=== PATIENT | female | born 1990 | race Caucasian/White ===

== ENCOUNTER 2017-02-03 13:13 | Emergency (ER) | payer OTHER ==
[~2017-02-03] VITALS: Wt 75.0 kg
[~2017-02-03 13:13] MED LIST: ATEN-51 PO; CARB100T2 PO; HYDR-3498 PO
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
--- NOTE | 2017-02-03 15:27 | RADRPT ---
PROCEDURE: XR Chest. CLINICAL INDICATION: Chest pain/injury TECHNIQUE: Chest AP. COMPARISON: No comparison available. FINDINGS: The mediastinal structures are unremarkable. The heart is normal in size and configuration. The pu lmonary vascularity is normal. The lung bullock are unremarkable. No consolidation is identified. The pleural spaces are unremarkable. The axial skeleton is unremarkable. IMPRESSION: No active intrathoracic disease. RPTAT: HGDB .Iam Clayton MD, MD Date Time Electronically viewed and signed by .Iam Clayton MD, MD on 02/03/2017 15:27 .B/
--- NOTE | 2017-02-03 15:27 | RADRPT ---
PROCEDURE: XR right hand. CLINICAL INDICATION: Hand pain /injury TECHNIQUE: Three views are available for review. COMPARISON: No prior studies are available for comparison. FINDINGS: The osseous structures are normal in mineralization, architecture and alignment. No fracture or oss eous lesion is identified. The joints are unremarkable. No erosions are identified. The soft tissue s are unremarkable. IMPRESSION: Unremarkable examination. RPTAT: HGDB .Iam Clayton MD, MD Date Time Electronically viewed and signed by .Iam Clayton MD, on 02/03/2017 15:27 .B/
--- NOTE | 2017-02-03 15:28 | RADRPT ---
PROCEDURE: XR right rib series. CLINICAL INDICATION: Rib pain TECHNIQUE: 3 views of the rib cage are available for review COMPARISON: No comparison study available FINDINGS: The ribs are normal in mineralization and architecture. No fracture is identified. No osseous lesi on is identified. The visualized lung bullock are unremarkable. The pleural spaces are unremarkable . No effusion or pneumothorax is identified. IMPRESSION: Unremarkable examination RPTAT: HGDB .Iam Clayton MD, MD Date Time Electronically viewed and signed by .Iam Clayton MD, on 02/03/2017 15:28 .B/
--- NOTE | 2017-02-03 15:29 | RADRPT ---
PROCEDURE: CR left humerus CLINICAL INDICATION: Arm pain /injury TECHNIQUE: 2 views of humerus performed COMPARISON: No comparison available. FINDINGS: The osseous structures are normal in mineralization, architecture and alignment.No fracture or osseo us lesion is identified. The joints are unremarkable. The soft tissues are unremarkable. IMPRESSION: Unremarkable examination. RPTAT: HGDB .Iam Clayton MD, MD Date Time Electronically viewed and signed by .Iam Clayton MD, on 02/03/2017 15:28 .B/
[2017-02-03] MEDS ORDERED: NAPR-260 PO (15:38)
[2017-02-03] MEDS ORDERED: NEOM1PAC TP (15:38)
[2017-02-03] MEDS ORDERED: TRAM50TA2 PO (15:38)
== END 2017-02-03 22:56 | disposition home or self-care (01) ==
LOC: FTE 13:13
DX: R07.81 Pleurodynia (principal); I10 Essential (primary) hypertension; Y08.89XA Assault by other specified means, initial encounter
CPT/HCPCS: 71010; 71100; 73060; 73130; Z7502

== ENCOUNTER 2017-08-02 12:17 | Emergency (ER) | payer OTHER ==
[~2017-08-02] VITALS: Ht 165.1 cm; Wt 80.0 kg
[~2017-08-02 12:17] MED LIST changes: +NAPR-260 PO; +NEOM1PAC TP; +TRAM50TA2 PO
[2017-08-02 12:26] VITALS: Ht 165.1 cm; Wt 80.0 kg
[2017-08-02] MEDS ORDERED: ONDANSETRON (ODT) 4 MG TAB ODT STA (14:16)
[2017-08-02] MEDS ORDERED: HYDROCODONE/APAP (5/325) TAB PO ONE (14:30)
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
== END 2017-08-02 15:07 | disposition home or self-care (01) ==
LOC: FTE 12:17
DX: S22.000D Wedge compression fracture of unspecified thoracic vertebra, subsequent encounter for fracture with routine healing (principal); I10 Essential (primary) hypertension; X58.XXXD Exposure to other specified factors, subsequent encounter
CPT/HCPCS: Z7502; Z7610; 99283

== ENCOUNTER 2017-08-04 11:21 | Emergency (ER) | payer OTHER ==
[~2017-08-04] VITALS: Ht 167.6 cm; Wt 70.0 kg
[2017-08-04 11:23] VITALS: Ht 167.6 cm; Wt 70.0 kg
[2017-08-04] MEDS ORDERED: ONDANSETRON (ODT) 4 MG TAB ODT STA (11:34)
[2017-08-04] MEDS ORDERED: HYDROCODONE/APAP (10/325) TAB PO ONE (12:00)
--- NOTE | 2017-08-04 13:07 | RADRPT ---
PROCEDURE: CT cervical spine without contrast CLINICAL INDICATION: Trauma. Neck pain. TECHNIQUE: CT scan of the cervical spine was performed [facility] No IV contrast was administered. Coronal and sagittal reformatted images were obtained from th e axial source images. Images were reviewed on a high-resolution PACS workstation. One or more the f ollowing does reduction techniques were utilized: Automated exposure control, adjustment of the mA/ or kV according to patient's size, or use of iterative reconstruction technique. Exam CTDI = 22.11 m Gy and the DLP = 430.86 mGy-cm. COMPARISON: None available. FINDINGS: There is reversal of normal cervical lordosis centered at C4-C5. Alignment remains intact. No acut e fracture or dislocation is seen. The vertebral body heights and disk spaces are preserved. Television Cameraman ior disc osteophyte complex at C5-C6 contributes to minimal spinal canal narrowing. Otherwise no sig nificant spinal canal or foraminal stenosis is noted. No mass, hematoma, or other soft tissue abnor mality is seen. IMPRESSION: 1. Reversal of normal cervical lordosis centered at C4-C5. 2. No acute fracture or traumatic subluxation. 3. Posterior disc osteophyte complex at C5-C6 contributes to minimal spinal canal narrowing RPTAT: JJ .Evaristo Lira MD, MD Date Time Electronically viewed and signed by .Evaristo Lira MD, MD on 08/04/2017 13:06 .N/
--- NOTE | 2017-08-04 13:19 | RADRPT ---
PROCEDURE: CT thoracic spine without contrast CLINICAL INDICATION: Trauma. Back pain. TECHNIQUE: CT scan of the thoracic spine [facility] No IV contrast was administered. Coronal and sagittal reformatted images were obtained from th e axial source images. Images were reviewed on a high-resolution PACS workstation. One or more the following does reduction techniques were utilized: Automated exposure control, adjustment of the mA/ or kV according to patient's size, or use of iterative reconstruction technique. Exam CTDI = 19.68 mGy and the DLP = 745.11 mGy-cm. COMPARISON: None available FINDINGS: Acute compression fractures of superior endplates of the T3 and T4 vertebral bodies are noted. No as sociated retropulsion is noted. The remainder of thoracic vertebral body heights are preserved. There is preservation of the normal thoracic kyphosis. Alignment remains intact. There are multilevel minimal degenerative changes of thoracic spine with decreased disk spaces and o steophytosis. No mass, hematoma, or other soft tissue abnormality is seen. IMPRESSION: 1. Acute compression fractures of superior endplates of the T3 and T4 vertebral bodies without asso ciated retropulsion. No acute subluxation. 2. Multilevel minimal discogenic disease. RPTAT: JJ .Evaristo Lira MD, Date Time Electronically viewed and signed by .Evaristo Lira MD, MD on 08/04/2017 13:18 .N/
[2017-08-04] MEDS ORDERED: HYDR-902 PO (13:31)
[2017-08-04 14:00] VITALS: BP 128/87; PULSE 66; RESP 20
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
== END 2017-08-04 14:01 | disposition home or self-care (01) ==
LOC: E/R 11:21
DX: S32.039A Unspecified fracture of third lumbar vertebra, initial encounter for closed fracture (principal); S32.049A Unspecified fracture of fourth lumbar vertebra, initial encounter for closed fracture; I10 Essential (primary) hypertension; V89.2XXA Person injured in unspecified motor-vehicle accident, traffic, initial encounter
CPT/HCPCS: 72125; 72128; Z7502; Z7610

== ENCOUNTER 2018-01-29 02:00 | Emergency (ER) | END 2018-01-29 03:48 | disposition home or self-care (01) ==